=== PATIENT | male | born 1955 | race Caucasian/White ===

== ENCOUNTER 2023-04-16 09:15 | Inpatient (IN) | payer OTHER ==
[~2023-04-16] VITALS: Ht 182.9 cm; Wt 131.5 kg
[2023-04-16] MEDS ORDERED: NORVASC5 MG PO (12:00)
[2023-04-16] MEDS ORDERED: CRESTOR10 MG PO (12:00)
[2023-04-21] MEDS ORDERED: OxyCODONE HCL/APAP UD (PERCOCET) PO PRN (13:45)
[2023-04-21] MEDS ORDERED: ONDANSETRON HCL 2 MG/ML VIAL IV PRN (13:45)
[2023-04-21] MEDS ORDERED: BUPIVACAINE HCL/PF 0.5% 30ML ML ONE (14:00)
[2023-04-21] MEDS ORDERED: KETOROLAC TROMETHAMINE 60 MG VIAL IM ONE ×3 (14:00→20:45)
[2023-04-21] MEDS ORDERED: TRANEXAMIC ACID 100MG/1ML (1000MG) AMPUL IV ONE ×3 (14:00→14:30)
[2023-04-21] MEDS ORDERED: CEFAZOLIN SODIUM 1,000 MG VIAL IV ONE (14:30)
[2023-04-21] MEDS ORDERED: BUPIVACAINE HCL/PF 0.25% 30ML VIAL InF ONE (14:30)
[2023-04-21] MEDS ORDERED: MORPHINE SULFATE 4 MG/ML VIAL IV ONE (14:30)
[2023-04-21] MEDS ORDERED: ENALAPRILAT DIHYDRATE 1.25 MG/ML VIAL IV PRN (16:45)
[2023-04-21] MEDS ORDERED: MORPHINE SULFATE 4 MG/ML CARTRIDGE IV SCH (18:00)
[2023-04-21] MEDS ORDERED: CEFAZOLIN SODIUM 1,000 MG VIAL IV SCH (18:00)
[2023-04-21] MEDS ORDERED: ORPHENADRINE CITRATE 100 MG TABLET PO SCH (21:00)
[2023-04-21] MEDS ORDERED: GABAPENTIN 100 MG CAPSULE PO SCH (21:00)
[2023-04-22 06:51] LABS: HEMATOCRIT 34.3 % (39.0-48.0); HEMOGLOBIN 11.8 g/dL (13-16.00); MEAN CELL VOLUME 91.2 fL (80.0-100.00); MEAN CORPUSCULAR HEMOGLOBIN 31.4 pg (27.00-32.0); MEAN CORPUSCULAR HGB CONC 34.4 g/dl (32.0-36.0); PLATELET COUNT 247 K/uL (150-450); RED BLOOD COUNT 3.76 M/uL (4.00-6.00); RED CELL DISTRIBUTION WIDTH 13.6 % (11.5-14.5)
[2023-04-22] MEDS ORDERED: AMLODIPINE BESYLATE 5 MG TABLET PO SCH (09:00)
[2023-04-22] MEDS ORDERED: ENOXAPARIN SODIUM 30 MG/0.3 ML SYRINGE SUBCUTANEO SCH (09:00)
[2023-04-22] MEDS ORDERED: Cyanocobalamin/Mecobalamin 1 TAB.SL SL SCH (15:51)
[2023-04-22] MEDS ORDERED: SOD FERRIC GLUC COMPLX/SUCROSE 62.5 MG/5 ML AMPUL IV SCH (15:51)
[2023-04-22] MEDS ORDERED: VITAMIN B COMPLEX 1 EACH PO SCH (17:00)
[2023-04-23 05:44] LABS: HEMATOCRIT 31.6 % (39.0-48.0); MEAN CELL VOLUME 92.4 fL (80.0-100.00); MEAN CORPUSCULAR HEMOGLOBIN 32.1 pg (27.00-32.0); MEAN CORPUSCULAR HGB CONC 34.7 g/dl (32.0-36.0); PLATELET COUNT 220 K/uL (150-450); RED BLOOD COUNT 3.43 M/uL (4.00-6.00); RED CELL DISTRIBUTION WIDTH 13.3 % (11.5-14.5)
[2023-04-23] MEDS ORDERED: NORFLEX100MG PO (11:51)
[2023-04-23] MEDS ORDERED: XARELTO10 MG PO (11:51)
[2023-04-23] MEDS ORDERED: OXYC1TAB9 PO (11:51)
[2023-04-23] MEDS ORDERED: GABAPENTIN100 MG PO (11:51)
== END 2023-04-23 16:38 | DRG 470 ==
LOC: O/R 04-21 06:29 → SURH 04-21 06:29
PROVIDERS: ADMIT Orthopaedic Surgery; ATTEND Orthopaedic Surgery
PROC: 0SRC0JZ Replacement of Right Knee Joint with Synthetic Substitute, Open Approach (ICD-10-PCS; principal; 2023-04-21 07:00)
DX: M17.11 Unilateral primary osteoarthritis, right knee (principal); M85.661 Other cyst of bone, right lower leg; I10 Essential (primary) hypertension

== ENCOUNTER → 2024-07-25 | Emergency (ER) | payer OTHER ==
[~2024-07-25] VITALS: Ht 185.4 cm; Wt 133.8 kg
[~2024-07-25] MED LIST: CRESTOR10 MG PO; ERLEADA240 MG PO; GABAPENTIN100 MG PO; LOSARTAN POTASS50 MG PO; NORFLEX100MG PO; NORVASC5 MG PO; OXYC1TAB9 PO; XARELTO10 MG PO
== END | disposition left against medical advice (07) ==
LOC: ER 22:25
DX: Z53.21 Procedure and treatment not carried out due to patient leaving prior to being seen by health care provider (principal)

== ENCOUNTER 2024-07-26 10:56 | Emergency (ER) | payer OTHER ==
[~2024-07-26] VITALS: Ht 182.9 cm; Wt 133.8 kg
[~2024-07-26 10:56] MED LIST changes: -ERLEADA240 MG PO
[2024-07-26 12:28] VITALS: BP 129/84; O2SAT 97
[2024-07-26] MEDS ORDERED: ERLEADA240 MG PO (12:29)
== END 2024-07-26 13:16 | disposition home or self-care (01) ==
LOC: ER 10:56
DX: S62.101A Fracture of unspecified carpal bone, right wrist, initial encounter for closed fracture (principal); S69.81XA Other specified injuries of right wrist, hand and finger(s), initial encounter; W18.39XA Other fall on same level, initial encounter; Y93.89 Activity, other specified; Y92.89 Other specified places as the place of occurrence of the external cause; Z85.46 Personal history of malignant neoplasm of prostate; I10 Essential (primary) hypertension